=== PATIENT | male | born 1960 | race Caucasian/White ===

== ENCOUNTER → 2017-04-11 | Day surgery (SDC) | payer OTHER ==
[2017-04-10 12:05] VITALS: BMI 35.2
[~2017-04-11] MED LIST: Propofol 200 MG/20 ML VIAL ONE
--- NOTE | 2017-04-11 16:01 | OP ---
DATE OF PROCEDURE: 04/11/2017 SURGEON: Quintin Jesus M.D. 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 PROCEDURE: Colonoscopy, diagnostic. INDICATIONS: 1. Left lower quadrant abdominal pain. 2. Constipation. 3. Followup after treatment of suspected diverticulitis 6 weeks ago. 4. This is the patient's first colonoscopy. MEDICATIONS: See anesthesia record. FINDINGS: After discussion of the risks, benefits and alternatives of the procedure, informed consen t was obtained and witnessed. Pre-endoscopic cardiopulmonary examination was satisfactory. Timeout was performed before sedation was achieved. Sedation was achieved with anesthesia assistance in the endoscopy unit. A Pentax adult colonoscope was prepared. Digital rectal exam was performed, which w as unremarkable. The colonoscope was inserted into the anus and passed forward to the cecum in the u sual fashion. The cecal base was identified by the appendiceal orifice as well as the ileocecal valv e. The terminal ileum was intubated and the ileal mucosa appeared normal. The colonoscope was then slowly withdrawn in a gradual and circumferential manner with careful examination of the entire colon ic mucosa including retroflexed views in the ascending colon. The entire colonic mucosa appeared nor mal. There were no polyps or mass lesions visualized. There were no diverticula noted. There were no other abnormalities. Retroflexion in the rectum was normal. The colonoscope was completely withd rawn and the patient allowed to recover. The patient tolerated the procedure well. There were no im mediate postprocedure complications. IMPRESSION: Normal colonoscopy to the terminal ileum. RECOMMENDATIONS: 1. Repeat colonoscopy for screening purposes in 10 years. 2. Trial of dicyclomine 10 mg by mouth up to 3 times daily as needed for left lower quadrant crampin g pain. 3. Follow up in GI clinic in about a month to see how he is doing with this.
== END ==
LOC: SDC 12:38
PROVIDERS: ATTEND Internal Medicine
PROC: 0DJD8ZZ Inspection of Lower Intestinal Tract, Via Natural or Artificial Opening Endoscopic (ICD-10-PCS; principal; 2017-04-11)
DX: K59.09 Other constipation (principal); R10.32 Left lower quadrant pain; R13.10 Dysphagia, unspecified; Z95.5 Presence of coronary angioplasty implant and graft
CPT/HCPCS: J2704

== ENCOUNTER 2017-05-20 13:49 | Outpatient (CLI) | payer OTHER ==
[2017-05-20 15:44] LABS: Hemoglobin 15.1 g/dL (14.0-18.0); Mean Corpuscular HGB CONC 33.8 g/dL (32.0-36.0); Mean Corpuscular Hemoglobin 32.2 pg (27.0-31.0); Mean Corpuscular Volume 95.2 fl (80.0-94.0); Mean Platelet Volume 8.4 fL (7.4-10.4); Platelet Count 260 thou/uL (130-400); RBC Distribution Width 11.5 % (11.5-14.5); Red Blood Cell (RBC) Count 4.69 mill/uL (4.70-6.10); White Blood Cell (WBC) Count 7.6 thou/uL (4.8-10.8)
[2017-05-20 15:52] LABS: PTT 36.4 SEC (22.9-36.1); Prothrombin Time 13.6 SEC (12.0-14.7)
[2017-05-20 16:06] LABS: ALT (SGPT) 23 U/L (8-55); AST (SGOT) 18 U/L (5-34); Albumin 4.4 g/dL (3.5-5.0); Alkaline Phosphatase 72 U/L (40-150); Anion Gap 13 mmol/L (10-20); BUN (Urea Nitrogen) 9 mg/dL (8.4-25.7); Calc. Creatinine Clearance 0 mL/min (70-130); Carbon Dioxide 21 mmol/L (22-29); Cardiac Risk 5.6 (Less than 4.5); Chloride 106 mmol/L (98-107); Cholesterol 173 mg/dl (< 200 Desired); Estimated GFR-MDRD Greater than 90; Globulin 2.6 g/dL (2.4-3.5); Glucose 84 mg/dL (70-105); HDL Cholesterol 31 mg/dL (>60 Neg Risk); LDL Cholesterol, Calculated 123 mg/dL; Potassium 3.8 mmol/L (3.5-5.1); Sodium 136 mmol/L (136-145); Triglycerides 97 mg/dL (Less than 150)
--- NOTE | 2017-07-22 21:09 | EKG ---
Test Reason : Blood Pressure : / mmHG Vent. Rate : 071 BPM Atrial Rate : 071 BPM P-R Int : 150 ms QRS Dur : 102 ms QT Int : 402 ms P-R-T Axes : 053 041 025 degrees QTc Int : 436 ms Normal sinus rhythm Normal ECG When compared with ECG of 11-FEB-2009 09:01, No significant change was found Confirmed by INGRID KING M.D. ([id number] on 07/22/2017 9:08:59 PM Referred By: FERNANDO Confirmed By:INGRID KING M.D.
== END 2017-05-20 13:50 | disposition home or self-care (01) ==
LOC: LABBT 13:49
PROVIDERS: ATTEND Internal Medicine Cardiovascular Disease
DX: Z01.818 Encounter for other preprocedural examination (principal); I25.119 Atherosclerotic heart disease of native coronary artery with unspecified angina pectoris
CPT/HCPCS: 80053; 80061; 85027; 85610; 85730; 93005; 93010

== ENCOUNTER 2017-05-24 05:40 | Day surgery (SDC) | payer OTHER ==
[2017-05-20 14:37] VITALS: BMI 36.1
[2017-05-24] MEDS ORDERED: methylPREDNISolone Sod Succ/PF 125 MG/2 ML VIAL ONE (06:58)
[2017-05-24] MEDS ORDERED: diphenhydrAMINE 50 MG/ML VIAL ONE (06:58)
[2017-05-24] MEDS ORDERED: Famotidine/PF 20 mg/2ml Vial ONE ×2 (06:58→08:05)
[2017-05-24] MEDS ORDERED: Nitroglycerin 100MG/250ML BOT 250 ML ONE (08:08)
[2017-05-24] MEDS ORDERED: Heparin 10,000 UNITS/1 ML VIAL ONE (08:08)
[2017-05-24] MEDS ORDERED: Verapamil 5 MG/2 ML VIAL ONE (08:08)
[2017-05-24] MEDS ORDERED: Fentanyl 100 MCG/2 ML VIAL ONE (08:19)
[2017-05-24] MEDS ORDERED: Midazolam HCl 2 mg/2 ml Vial ONE (08:19)
[2017-05-24] MEDS ORDERED: Iopamidol 370 76% 100 ML VIAL ONE (11:19)
== END 2017-05-24 12:37 | disposition home or self-care (01) ==
LOC: CCL 05:40
PROVIDERS: ATTEND Internal Medicine Cardiovascular Disease
DX: I25.119 Atherosclerotic heart disease of native coronary artery with unspecified angina pectoris (principal); Z91.041 Radiographic dye allergy status; Z98.890 Other specified postprocedural states
CPT/HCPCS: 93458; 99152; C1769; J1200; J1644; J2250; J2930; J3010; S0028

== ENCOUNTER 2018-05-01 04:48 | Observation (INO) | payer OTHER ==
[2018-05-01 05:16] LABS: #Basophils 0.1 thou/uL (0.0-0.2); #Eosinphils 0.2 thou/uL (0.0-0.7); #Lymphocytes 1.6 thou/uL (1.20-3.40); #Monocytes 0.4 thou/uL (0.11-0.59); #Neutrophils 3.4 thou/uL (1.40-6.50); %Basophils 1.2 % (0.0-1.0); %Eosinophils 2.7 % (0.0-10.0); %Lymphocytes 27.9 % (21.0-51.0); %Monocytes 7.1 % (0.0-10.0); %Neutrophils 61.1 % (42.0-75.0); Hemoglobin 16.2 g/dL (14.0-18.0); Mean Corpuscular HGB CONC 33.2 g/dL (32.0-36.0); Mean Corpuscular Hemoglobin 31.1 pg (27.0-31.0); Mean Corpuscular Volume 93.7 fL (78.0-98.0); Mean Platelet Volume 8.6 fL (7.4-10.4); Platelet Count 248 thou/uL (130-400); RBC Distribution Width 11.8 % (11.5-14.5); Red Blood Cell (RBC) Count 5.21 mill/uL (4.70-6.10); White Blood Cell (WBC) Count 5.6 thou/uL (4.8-10.8)
[2018-05-01] MEDS ORDERED: Nitroglycerin 0.4 MG TAB (25 Tab Bottle) ONE (05:20)
[2018-05-01 05:56] LABS: ALT (SGPT) 28 U/L (8-55); AST (SGOT) 26 U/L (5-34); Albumin 4.2 g/dL (3.5-5.0); Alkaline Phosphatase 78 U/L (40-150); Anion Gap 14 mmol/L (10-20); BUN (Urea Nitrogen) 14 mg/dL (8.4-25.7); Bilirubin, Total 0.6 mg/dL (0.2-1.2); Calc. Creatinine Clearance 0 mL/min (70-130); Carbon Dioxide 22 mmol/L (22-29); Chloride 108 mmol/L (98-107); Estimated GFR-MDRD Greater than 90; Globulin 3.1 g/dL (2.4-3.5); Glucose 121 mg/dL (70-105); Potassium 4.9 mmol/L (3.5-5.1); Protein, Total 7.3 g/dL (6.0-8.3); Sodium 139 mmol/L (136-145)
[2018-05-01] MEDS ORDERED: methylPREDNISolone Sod Succ/PF 125 MG/2 ML VIAL ONE (06:22)
[2018-05-01] MEDS ORDERED: Famotidine/PF 20 mg/2ml Vial ONE (06:22)
[2018-05-01] MEDS ORDERED: diphenhydrAMINE 50 MG/ML VIAL ONE (06:22)
--- NOTE | 2018-05-01 08:14 | CT ---
CT AORTOGRAM CHEST AND ABDOMEN WITH CONTRAST: CT aortogram performed with multiplanar reconstruction and 3D post processing. Images obtained from aortic arch to aortic bifurcation. INDICATION: Chest pain and back pain. Assess for aortic dissection. FINDINGS: Thoracic and abdominal aorta are normal caliber. There is no evidence of dissection or aneurysm. Th e aortic branches, including celiac artery, superior mesenteric artery, and renal arteries appear unr emarkable. Aortic bifurcation is unremarkable with visualized iliac arteries appearing unremarkable. No significant atherosclerotic change. The visualized lung chambers are clear of infiltrate. Some mild hazy possibly atelectatic changes in t he posterior lungs. No effusion. Mediastinum unremarkable. No adenopathy. Visualized liver, spleen, pancreas, and adrenal glands appear unremarkable. There is a large left re nal cyst which measures 5.2 cm. No hydronephrosis. The visualized bowel loops are unremarkable. Th e appendix is partially imaged and appear unremarkable. There is a nonobstructing calculus in the mid pole collecting structures of the left kidney measuring approximately 3 mm. Osseous structures unremarkable. IMPRESSION: 1. No evidence of aortic aneurysm or dissection. 2. Nonobstructing calculus upper collecting structures left kidney. 3. Left renal cyst as described. POS: [facility]
--- NOTE | 2018-05-01 08:24 | RAD ---
PORTABLE CHEST: HISTORY: Chest pain. COMPARISON: 02/10/2009. FINDINGS: Lungs appear clear. The heart size is upper normal. IMPRESSION: No acute finding. POS: [facility]
[2018-05-01] MEDS ORDERED: ISOVUE-370 76%-LOCM 1 ML ONE (11:08)
[2018-05-01 11:10] LABS: Troponin I Less than 0.010 ng/mL (< 0.028)
[2018-05-01] MEDS ORDERED: Nitroglycerin 0.4 MG TAB (25 Tab Bottle) PO PRN (12:31)
[2018-05-01] MEDS ORDERED: Aspirin 325 MG TAB PO SCH (13:00)
[2018-05-01 13:53] LABS: Troponin I Less than 0.010 ng/mL (< 0.028)
[2018-05-01] MEDS ORDERED: Aspirin 325 MG TAB ONE (15:31)
[2018-05-01 18:35] VITALS: BMI 35.9
--- NOTE | 2018-05-01 19:21 | HP ---
HISTORY OF PRESENT ILLNESS: This is a 57-year-old white male with a history of coronary artery disease, hypertension, and hyperlipidemia, who presents with chest pain. The patient did undergo a cardiac catheterization in May of 2017, this past year, he was noted to have a 40% in-stent restenoses as well as a severe ostial D1 small vessel disease. Medical therapy at that time was recommended. He was doing well until approximately three days ago, began developing recurrent chest pain. 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 He complains of lot of pain with deep inspiration. However, his pain has become worse over the past three days and at one time, he had one bout of nausea, otherwise no vomiting or diaphoresis. PAST MEDICAL HISTORY: Coronary artery disease, hypertension, hyperlipidemia, history of pancreatitis due to possible statin, obesity. PAST SURGICAL HISTORY: Past surgeries include heart stent x1 in 2007; colonoscopy, normal in March [address] Jesus; cardiac catheterization, May 24, [address] Fermin with a 40% in-stent restenoses and one severe ostial lesion. FAMILY HISTORY: Father with lung cancer. He was a smoker. SOCIAL HISTORY: He is a nonsmoker. He is . He has no children. He works for [employer]. REVIEW OF SYSTEMS: As above. MEDICATIONS: Aspirin 81 daily, fish oil 1000 b.i.d., vitamin daily, metoprolol 25 half tab b.i.d., Pravachol 40 daily. PHYSICAL EXAMINATION: VITAL SIGNS: Stable, afebrile, blood pressure 117/83, pulse 80, respirations are 16. HEENT: Clear. HEART: Regular rate and rhythm. LUNGS: Clear. ABDOMEN: Soft. EXTREMITIES: With no edema. LABORATORY DATA: White count 5.6, hemoglobin and hematocrit 16 and 48. Sodium 139, potassium 4.9, chloride 108, and glucose 121. Troponin 1 less than 0.010 x2. Liver function tests, normal. ASSESSMENT: 1. Chest pain, rule out myocardial infarction. 2. Coronary artery disease with prior cardiac cath, May 2017. 3. Hypertension. 4. Hyperlipidemia. 5. History of pancreatitis. PLAN: 1. Resume home medications. 2. Lovenox. 3. Echo. 4. Cardiolite stress. Job ID: [id number]
[2018-05-01] MEDS: Metoprolol Tartrate 25 MG TAB PO SCH (20:44)
[2018-05-01] MEDS: Enoxaparin Sodium 120 MG/0.8 ML SYRINGE SC SCH (20:45)
[2018-05-02 05:35] LABS: Cardiac Risk 5.1 (Less than 4.5)
[2018-05-02] MEDS ORDERED: Aspirin 325 MG TAB PO SCH (09:00)
--- NOTE | 2018-05-02 12:07 | NM ---
MYOCARDIAL PERFUSION SCAN: 05/02/2018 PROVIDED CLINICAL HISTORY: Chest pain. RADIOPHARMACEUTICAL: Technetium 99m labeled sestamibi 31.4 millicuries IV stress. Technetium 99m labeled sestamibi 10 millicuries IV rest. FINDINGS: There is diminished radiotracer accumulation involving the basal to mid inferior wall on the stress a nd rest nonattenuated corrected images. Following attenuation correction, there is a normal distribu tion of radiotracer throughout this portion of the myocardium. There is no evidence for reversibilit y to suggest ischemia. Gated data demonstrate normal myocardial wall motion and thickening, with a c alculated LVEF of 56%. TID is 1.19. IMPRESSION: 1. No scintigraphic evidence for ischemia. 2. Diaphragmatic attenuation. POS: [facility]
[2018-05-02 12:16] VITALS: BP 144/74; TEMP 97.7
[2018-05-02] MEDS: Metoprolol Tartrate 25 MG TAB PO SCH (12:20)
[2018-05-02] MEDS: Enoxaparin Sodium 120 MG/0.8 ML SYRINGE SC SCH (12:20)
--- NOTE | 2018-05-02 15:55 | CON ---
DATE OF CONSULTATION: 05/02/2018 REASON FOR CONSULTATION: Chest pain. HISTORY OF PRESENT ILLNESS: Mr. Villagomez is a pleasant 57-year-old white gentleman, who comes to the hospital for chest pain. His pain is actually not on his chest, on his back and midscapular area. It was very sharp. He could not even stand straight because of the pain. He has had to come in for evaluation. He has a history of coronary artery disease with a stent to the LAD. The last time this stent was imaged was in a cardiac catheterization in May 2017, at which point, he was found to have a 40% in-stent restenosis and an ostial lesion in one of his diagonals, which is not amenable to revascularization, has been treated medically for some time now. He was admitted and ruled out with negative enzymes. EKG was unremarkable. Had a stress test earlier today that was negative as well. Cardiology is being consulted for further recommendations. PAST MEDICAL HISTORY: 1. Coronary artery disease as above. 2. Hypertension. 3. Hyperlipidemia. 4. History of pancreatitis from statin use. 5. Obesity. PAST SURGICAL HISTORY: 1. Heart catheterization with stent placement in his LAD. 2. Colonoscopy. FAMILY HISTORY: Father with lung cancer. No early coronary artery disease. SOCIAL HISTORY: No alcohol, tobacco, or drugs. He works at [employer] for [employer]. He states that there are several women working in the area, mostly women and they ask him all the time to lift heavy things. He feels that he has been lifting a lot more heavier things than usual. OUTPATIENT MEDICATIONS: 1. Coreg 12.5 mg b.i.d. 2. Aspirin 81 a day. 3. Fish oil. 4. Isosorbide mononitrate 30 mg q.a.m. daily. 5. Lipitor 80 mg at bedtime. ALLERGIES: IODINE. REVIEW OF SYSTEMS: A 12-point review of systems was done, it was all negative unless stated in the history of present illness. PHYSICAL EXAMINATION: VITAL SIGNS: Temperature 97.7, pulse 62, respiratory rate 16, saturating 96% on room air, and blood pressure 144/74. GENERAL: Awake, alert, and oriented x3, in no distress. HEENT: Normocephalic and atraumatic. NECK: Supple. LUNGS: Clear. CARDIOVASCULAR: S1, S2. No S3 or S4. No murmurs. ABDOMEN: Soft. Positive bowel sounds. EXTREMITIES: No edema. SKIN: Warm and dry. LABORATORY DATA: Laboratory work was reviewed. CBC is unremarkable. Chemistries are unremarkable. Troponin is negative x3. Triglycerides of 184, cholesterol total of 199, LDL of 123, HDL of 39. EKG was reviewed. Chest x-ray was reviewed. CT dissection was reviewed. Stress dose was reviewed. ASSESSMENT AND PLAN: 1. Chest pain: More back pain, interscapular, most likely musculoskeletal in nature. 2. Coronary artery disease, stable. No ACS. 3. Hyperlipidemia. 4. Okay to discharge from the cardiac perspective. He ruled out. Negative enzymes, negative EKG, and he had mild disease with mild in-stent restenosis a little less than a year ago and has a normal stress today. 5. We will follow up in the office as previously scheduled. He would like me to send prescriptions for the Coreg and the Imdur today. We will send him through my system. Thank you for letting me to participate in the care of the your patient. We will sign off. Job ID: [id number]
--- NOTE | 2018-05-03 01:20 | DIS ---
DATE OF ADMISSION: 05/01/2018 DATE OF DISCHARGE: 05/02/2018 DISCHARGE DIAGNOSES: 1. Chest pain. 2. Coronary artery disease with prior cardiac cath in 05/2017. 3. Hypertension. 4. Hyperlipidemia. 5. Chest wall pain. 6. History of pancreatitis. PROCEDURE: Stress Cardiolite normal. BRIEF HISTORY: This is a 57-year-old white male with history of coronary artery disease, hypertension, and hyperlipidemia, who had a cardiac catheterization in 05/2017, which revealed a 40% in-stent restenoses as well as severe ostial D1 small vessel disease. Medical therapy was recommended. 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 He was complaining of chest pain with deep inspiration radiating to his neck. He did have one bout of nausea, but no vomiting or diaphoresis. HOSPITAL COURSE: The patient has done well. He has had no nausea, vomiting while in the hospital. He still has a little occasional chest discomfort with specially deep inspiration. Cardiolite stress test was performed, which was found to be unremarkable. He is now ready for discharge. DISCHARGE MEDICATIONS: He will be discharged on; 1. Aspirin 81 daily. 2. Metoprolol 12.5 p.o. b.i.d. 3. Vitamin daily. 4. Pravachol 40 daily. Job ID: [id number]
--- NOTE | 2018-05-03 23:30 | EKG ---
Test Reason : CHESTPAIN Blood Pressure : / mmHG Vent. Rate : 083 BPM Atrial Rate : 083 BPM P-R Int : 138 ms QRS Dur : 100 ms QT Int : 392 ms P-R-T Axes : 031 010 025 degrees QTc Int : 460 ms Normal sinus rhythm Normal ECG Confirmed by GIL COX DO ([id number]), web editor JENNIFER GOMES ([id number]) on 05/03/2018 11:29:35 PM Referred By: Confirmed By:GIL COX DO
--- NOTE | 2018-05-05 13:07 | STRESS ---
Acquisition Time: 2018-05-02 09:32:37 Total Exercise Time: 00:04:00 Test Indications: CHEST PAIN Medications: Protocol: ADENOSINE Max HR: 088 BPM 53% of Pred: 163 BPM Max BP: 128/066 mmHG Max Work Load: 1.0 METS RESTING ECG: NORMAL SINUS RHYTHM AT 61 BPM SYMPTOMS: CHEST PAIN NORMAL BP RESPONSE ECTOPY: NONE ECG STRESS: NO SIGNIFICANT CHANGES INTERPRETATION: AWAIT NUCLEAR IMAGES FOR DEFINITIVE DIAGNOSIS Confirmed by DANISH SALGADO ([id number]), editorial intern ANNY HARTMANN ([id number]) on 05/05/2018 1:07:03 PM Referred By: MD Deneen WICK Confirmed By:DANISH SALGADO
== END 2018-05-02 14:49 | disposition home or self-care (01) ==
LOC: ERS 04:48 → ERHOLD 10:21 → 2SW 18:32
PROVIDERS: ADMIT Family Medicine; ATTEND Family Medicine
DX: R07.9 Chest pain, unspecified (principal); I25.10 Atherosclerotic heart disease of native coronary artery without angina pectoris; I10 Essential (primary) hypertension; E78.5 Hyperlipidemia, unspecified; N20.0 Calculus of kidney; N28.1 Cyst of kidney, acquired; E66.9 Obesity, unspecified; Z68.36 Body mass index [BMI] 36.0-36.9, adult; Z95.5 Presence of coronary angioplasty implant and graft; Z79.82 Long term (current) use of aspirin; Z79.899 Other long term (current) drug therapy; Z91.041 Radiographic dye allergy status
CPT/HCPCS: 36415; 71045; 71275; 78452; 80053; 80061; 84484; 85025; 93005; 93017; 93306; 96372; 96374; 96375; A9500; G0378; J0153; J1200; J1650; J2930; S0028

== ENCOUNTER 2018-07-11 13:35 | Outpatient (CLI) | payer OTHER ==
--- NOTE | 2018-07-11 16:38 | MRI ---
MRI LEFT KNEE WITHOUT CONTRAST: 07/11/18 INDICATION: Left knee pain and swelling for three weeks. COMPARISON: None. FINDINGS: There is a very complex multidirectional tear involving the posterior horn and posterior body of the medial meniscus. There is partial medial extrusion of the meniscus. There is predominant radial compo nent involving the posterior horn of the medial meniscus with a small horizontal component involving the posterior junction, posterior body. The lateral meniscus appears intact. The ACL, PCL, MCL and LCLC are intact. There is a small semimembranosus-medial gastrocnemius popliteal cyst. There is mild joint effusion. There are small marginal osteophytes affecting the major compartments of the knees. The articular car tilage of the patellofemoral compartment appears relatively well maintained. There is a new full thic kness region of delamination involving the medial patella facet measuring approximately 1.2 cm in its mediolateral dimensions and approximately 1.4 cm on its greatest AP dimension on image 14 of series 6. The IT band and popliteus appear within normal limits. IMPRESSION: 1. Complex medial meniscal tear. 2. Near full thickness articular cartilage delamination involving the medial femoral condyle. 3. Mild early osteoarthrosis. 4. Moderate sized Wang's cyst. POS: [facility]
== END 2018-07-11 13:36 | disposition home or self-care (01) ==
LOC: TBSIIMAG 13:35
PROVIDERS: ATTEND Orthopaedic Surgery
DX: M23.92 Unspecified internal derangement of left knee (principal); S83.232A Complex tear of medial meniscus, current injury, left knee, initial encounter; M17.12 Unilateral primary osteoarthritis, left knee; M71.22 Synovial cyst of popliteal space [Baker], left knee

== ENCOUNTER 2018-07-28 13:43 | Outpatient (CLI) | payer OTHER ==
[2018-07-28 14:33] LABS: #Basophils 0.1 thou/uL (0.0-0.2); #Eosinphils 0.2 thou/uL (0.0-0.7); #Lymphocytes 1.7 thou/uL (1.20-3.40); #Monocytes 0.5 thou/uL (0.11-0.59); #Neutrophils 4.1 thou/uL (1.40-6.50); %Basophils 1.2 % (0.0-1.0); %Eosinophils 2.6 % (0.0-10.0); %Lymphocytes 25.8 % (21.0-51.0); %Monocytes 7.2 % (0.0-10.0); %Neutrophils 63.3 % (42.0-75.0); Hemoglobin 15.1 g/dL (14.0-18.0); Mean Corpuscular Hemoglobin 31.4 pg (27.0-31.0); Mean Corpuscular Volume 94.9 fL (78.0-98.0); Mean Platelet Volume 8.3 fL (7.4-10.4); Platelet Count 300 thou/uL (130-400); RBC Distribution Width 11.8 % (11.5-14.5); Red Blood Cell (RBC) Count 4.81 mill/uL (4.70-6.10); White Blood Cell (WBC) Count 6.4 thou/uL (4.8-10.8)
[2018-07-28 14:58] LABS: Anion Gap 12 mmol/L (10-20); BUN (Urea Nitrogen) 10 mg/dL (8.4-25.7); Calc. Creatinine Clearance 0 mL/min (70-130); Calcium 9.3 mg/dL (7.8-10.44); Carbon Dioxide 27 mmol/L (22-29); Chloride 101 mmol/L (98-107); Estimated GFR-MDRD Greater than 90; Glucose 81 mg/dL (70-105); Potassium 4.2 mmol/L (3.5-5.1); Sodium 136 mmol/L (136-145)
--- NOTE | 2018-07-29 22:29 | EKG ---
Test Reason : Blood Pressure : / mmHG Vent. Rate : 075 BPM Atrial Rate : 075 BPM P-R Int : 150 ms QRS Dur : 098 ms QT Int : 398 ms P-R-T Axes : 054 049 045 degrees QTc Int : 444 ms Normal sinus rhythm Normal ECG When compared with ECG of 01-MAY-2018 13:00, No significant change was found Confirmed by Ted KIRK ([id number]) on 07/29/2018 10:28:38 PM Referred By: YULIANA Confirmed By:Ted KIRK
== END 2018-07-28 13:44 | disposition home or self-care (01) ==
LOC: LABBT 13:43
PROVIDERS: ATTEND Orthopaedic Surgery
DX: Z01.818 Encounter for other preprocedural examination (principal); S83.207A Unspecified tear of unspecified meniscus, current injury, left knee, initial encounter
CPT/HCPCS: 80048; 85025; 93005; 93010

== ENCOUNTER 2018-07-30 06:25 | Day surgery (SDC) | payer OTHER ==
[2018-07-28 13:32] VITALS: BMI 35.9
[2018-07-30] MEDS ORDERED: Famotidine/PF 20 mg/2ml Vial ONE (06:38)
[2018-07-30] MEDS ORDERED: Bupivacaine HCl 0.5%/Epinephrine 1:200,000/PF 30 ml Vial ONE ×2 (06:59→13:35)
[2018-07-30] MEDS ORDERED: Bupivacaine/Epinephrine 0.25% 30 ML VIAL ONE (06:59)
[2018-07-30] MEDS ORDERED: PROPOFOL 20 ML ONE (07:49)
[2018-07-30] MEDS ORDERED: Fentanyl 100 MCG/2 ML VIAL ONE (08:01)
[2018-07-30] MEDS ORDERED: Nitroglycerin 2% Ointment 1 INCH/1 GM Packet ONE (08:01)
[2018-07-30] MEDS ORDERED: Lidocaine 2% w/Epinephrine 1:200K 20 ML VIAL ONE (13:35)
--- NOTE | 2018-07-30 14:23 | OP ---
DATE OF PROCEDURE: 07/30/2018 PREOPERATIVE DIAGNOSIS: Left knee posterior horn medial meniscus tear. POSTOPERATIVE DIAGNOSES: 1. Left knee posterior horn medial meniscus tear. 2. Acute grade 3/4 chondral lesion, medial femoral condyle, approximately 1.5 cm in length and about 7 mm in width with unstable chondral flaps. PROCEDURES PERFORMED: 1. Left knee arthroscopy with partial medial meniscectomy. 2. Chondroplasty, unstable chondral flaps, medial femoral condyle. HOME SERVICE DIRECTOR: None. ESTIMATED BLOOD LOSS: Minimal. COMPLICATIONS: None. ANESTHESIA: The patient did have a general anesthetic as well as a local block. DISPOSITION: He went to recovery room in stable condition. INDICATIONS: A 58-year-old male, who comes in complaining of catching, swelling, and pain in the knee. At this time, he opted to have surgery. DESCRIPTION OF PROCEDURE: After all appropriate consent forms were explained and signed, he was taken back to the operative room and at this time was given general anesthetic. Once the level of anesthesia was appropriate, a tourniquet was placed on left thigh. Leg was then placed in arthroscopic leg wilkerson. The limb was then prepped and draped in standard surgical fashion. The limb was exsanguinated and tourniquet taken up to 300 mmHg. Inferolateral portal was established. Scope was placed into the knee joint. A needle localization technique was then used to make a medial working portal. Diagnostic arthroscopy commenced in the notch. ACL and PCL were probed and found to be intact. Medial compartment showed large unstable chondral flaps, but one appeared to be probably an acute lesion on the end of the medial femoral condyle. Once these were debrided with the shaver, this lesion ended up being grade 3, very close to grade 4 lesion, but no visible bone at this time. It was greater than 1.5 cm from top to bottom and about 7 mm in width. Medial compartment was entered. Tibial plateau was in good condition. There was a tear in the posterior horn of the medial meniscus and a partial medial meniscectomy was performed using meniscal biter and shaver. Lateral compartment was evaluated, found to be intact. Patellofemoral joint was intact. No loose bodies were noted in the gutters. The scope was removed, knee was drained. Portals were closed with simple nylon stitch. Bulky sterile dressing was applied. Tourniquet was let down. Toes pinked up nicely. The patient was awakened, taken to the recovery room in stable condition. All counts were correct at the end of the case and he did receive preoperative IV antibiotics. Job ID: [id number]
[2018-07-30] MEDS ORDERED: PROPOFOL 200 MG/20 ML VIAL ONE (15:03)
[2018-07-30] MEDS ORDERED: Ketorolac Tromethamine 30 MG/ML VIAL ONE (15:03)
[2018-07-30] MEDS ORDERED: Lidocaine 1% PF 5 ML VIAL ONE (15:03)
[2018-07-30] MEDS ORDERED: Dexamethasone 20 MG/5 ML VIAL ONE (15:03)
[2018-07-30] MEDS ORDERED: Ondansetron PF 4 MG/2 ML Vial ONE (15:03)
== END 2018-07-30 11:15 | disposition home or self-care (01) ==
LOC: SDC 06:25
PROVIDERS: ATTEND Orthopaedic Surgery
PROC: 0SBD4ZZ Excision of Left Knee Joint, Percutaneous Endoscopic Approach (ICD-10-PCS; principal; 2018-07-30)
DX: S83.242A Other tear of medial meniscus, current injury, left knee, initial encounter (principal); M17.12 Unilateral primary osteoarthritis, left knee; M24.10 Other articular cartilage disorders, unspecified site
CPT/HCPCS: J0131; J0670; J1100; J1885; J2001; J2405; J2704; J3010; S0028